=== PATIENT | female | born 1970 | race African-American/Black ===

== ENCOUNTER 2016-08-01 13:51 | Emergency (ER) | payer OTHER ==
[~2016-08-01] VITALS: Ht 160 cm; Wt 52.3 kg
[2016-08-01] MEDS ORDERED: SOD CHLORIDE 0.9% 1,000 ML IV STA (13:54)
[2016-08-01] MEDS ORDERED: ONDANSETRON 4 MG INJ IV STA (13:56)
[2016-08-01] MEDS ORDERED: morphine 4 MG/ML VIAL IV STA (13:56)
[2016-08-01] MEDS ORDERED: BISACODYL 10 MG SUPP PR ONE (14:00)
[2016-08-01] MEDS ORDERED: LACTULOSE 30ML CUP PO ONE (14:00)
[2016-08-01] MEDS ORDERED: ONDANSETRON (ODT) 4 MG TAB ODT STA (14:03)
[2016-08-01] MEDS: HYDROCODONE/APAP (10/325) TAB PO ONE ×2 (14:10→14:16)
[2016-08-01 14:16] VITALS: Ht 160 cm; Wt 52.3 kg
--- NOTE | 2016-08-01 14:56 | ERD ---
ER Documentation Chief Complaint Date/Time DATE: 08/01/16 TIME: 14:53 Chief Complaint pt biba from home c/o constipation x 3 days hysterectomy 07/20/16, ap HPI Patient is a 46-year-old female with stomach cancer who presents with "severe constipation". She was brought in by ambulance. She says that she had surgery on July 20 which was both a hysterectomy and appendectomy. She has lost 40 pounds since his surgery. She is having rectal pain. She tried an enema with no help. She has had decreased intake by mouth. Upon review of old medical records this is the patient's first visit to the emergency department. She says "all my doctors are in [place]". ROS All systems reviewed and are negative except as per history of present illness. PMhx/Soc History of Surgery: Yes (hysterectomy, appendectomy ) Hx Neurological Disorder: No Hx Respiratory Disorders: No Hx Cardiac Disorders: No Hx Psychiatric Problems: No Hx Miscellaneous Medical Probl: Yes (stomach CA) Hx Alcohol Use: No Hx Substance Use: No Hx Tobacco Use: No Smoking Status: Never smoker FmHx Family History: diabetes Physical Exam Vitals Vital Signs Date Time Temp Pulse Resp B/P Pulse Ox O2 Delivery O2 Flow Rate FiO2 08/01/16 14:16 98.6 106 17 131/83 100 Physical Exam Const: Moderate distress secondary to pain Head: Atraumatic Eyes: Normal Conjunctiva ENT: Normal External Ears, Nose and Mouth. Neck: Full range of motion..~ No meningismus. Resp: Clear to auscultation bilaterally Cardio: Regular rate and rhythm, no murmurs Abd: Soft, diffuse tenderness to palpation without rebound or guarding, no obvious signs of obstruction or distention at this time Skin: Midline abdominal surgical scar is clean, dry, and intact Back: No midline or flank tenderness Ext: No cyanosis, or edema Neur: Awake and alert Psych: Normal Mood and Affect Results 24 hrs Current Medications Medications (Trade) Dose Ordered Sig/Nnamdi Route PRN Reason Start Time Stop Time Status Last Admin Dose Admin Sodium Chloride (NS) 1,000 ml @ 1,000 mls/hr Q1H STAT IV 08/01/16 13:54 08/01/16 14:04 DC Bisacodyl (Dulcolax Supp) 10 mg ONCE ONCE ID 08/01/16 14:00 08/01/16 14:04 DC Lactulose (Enulose) 20 gm ONCE ONCE PO 08/01/16 14:00 08/01/16 14:04 DC Morphine Sulfate (morphine) 4 mg ONCE STAT IV 08/01/16 13:56 08/01/16 14:04 DC Ondansetron HCl (Zofran Inj) 4 mg ONCE STAT IV 08/01/16 13:56 08/01/16 14:04 DC Acetaminophen/ Hydrocodone Bitart (Reeder (10/325)) 1 tab ONCE ONCE PO 08/01/16 14:30 08/01/16 14:31 DC Ondansetron HCl (Zofran Odt) 4 mg ONCE STAT ODT 08/01/16 14:03 08/01/16 14:05 DC 08/01/16 14:10 Procedures/MDM Patient is a 46-year-old female with stomach cancer presents with constipation and abdominal pain. Initially I was going to do a workup including laboratory studies, CT scan of the abdomen pelvis, fluids, lactulose, Dulcolax initially admission but the patient wants to be discharged and go to [place] where her doctors are. Her father is coming to pick her up. She was hoping that the ambulance to take her to [place] but they brought her to [facility] which was the closest emergency department. She will take Reeder and Zofran here for her pain but does not want any further workup. I told her that we could not rule out anything here but that if she would like to be discharged that would be possible and then she could go see her doctors in [place]. At this point I doubt appendicitis. I was concerned for possible intra-abdominal abscess as she recently had her surgery on July 20. Departure Diagnosis: Primary Impression: Constipation Constipation type: unspecified constipation type Qualified Code: K59.00 - Constipation, unspecified constipation type Additional Impression: Abdominal pain Abdominal location: generalized Qualified Code: R10.84 - Generalized abdominal pain Condition: Fair Patient Instructions: Abdominal Pain, Constipation (Adult) Referrals: Your surgeon Additional Instructions: FOLLOW UP WITH YOUR PRIMARY CARE PHYSICIAN TOMORROW.Return to this facility if you are not improving as expected. SAPNA ZARATE MD Aug 01, 2016 14:55
== END 2016-08-01 14:20 | disposition home or self-care (01) ==
LOC: E/R 13:51
DX: K59.00 Constipation, unspecified (principal); R10.84 Generalized abdominal pain; Z85.028 Personal history of other malignant neoplasm of stomach
CPT/HCPCS: 99283; J7030